=== PATIENT | male | born 1940 | race Caucasian/White ===

== ENCOUNTER → 2021-01-03 12:05 | Outpatient (BNVA) | payer OTHER, SELFPAY | PROVIDERS: PCP Nurse Practitioner Family; Visit Provider Nurse Practitioner | DX: M43.6 Torticollis (principal); M25.50 Pain in unspecified joint; R29.898 Other symptoms and signs involving the musculoskeletal system | CPT/HCPCS: 99204 ==

== ENCOUNTER → 2021-12-20 10:33 | Outpatient (BNVA) | payer OTHER, SELFPAY | PROVIDERS: PCP Family Medicine; Referring Provider Nurse Practitioner; Visit Provider Specialist | DX: G56.03 Carpal tunnel syndrome, bilateral upper limbs (principal); G56.23 Lesion of ulnar nerve, bilateral upper limbs | CPT/HCPCS: 95910; 95913 ==

== ENCOUNTER 2022-02-13 11:32 | Emergency (ER) | payer OTHER, SELFPAY ==
[2022-02-13 11:33] VITALS: BP 136/63; PULSE 80; RESP 17; TEMP 36.8; O2SAT 94; BMI 26.6
--- NOTE | 2022-02-13 11:45 | XR_ITS ---
WS: [id number] Exam: XR chest 1V portable [id number] Date/Time of Exam: 02/13/2022 11:45 AM Reason For Exam: chest pain No priors. The lungs are fully expanded and clear. Normal cardiomediastinal silhouette. Costophrenic angles are sharp. Bony structures are unremarkable. XR/XR chest 1V portable [id number] IMPRESSION: 1. No acute cardiopulmonary finding.
--- NOTE | 2022-02-13 11:46 | ECG_ITS ---
[facility] Test Date: 2022-02-13 Pat Name: Tyree Storm Department: Room: Gender: Male Retail Sales Associate: : 1940 Requested By: Lalito Flor Order Number: [id number] Soumya MD: Sherice March M.D. Measurements Intervals [place] Rate: 64 P: 59 NE: 140 QRS: 55 QRSD: 93 T: 49 QT: 409 QTc: 425 Interpretive Statements SINUS RHYTHM WITH SINUS ARRHYTHMIA NONSPECIFIC T-WAVE ABNORMALITY No previous ECG available for comparison Electronically Signed On 02-13-2022 22:53:58 CDT by Sherice March M.D. [id number] f
[2022-02-13 11:49] VITALS: BP 175/101; PULSE 67; O2SAT 96
[2022-02-13 12:00] LABS: Basophils # 0.1 10^3/uL (0.0-0.1); Basophils % 0.9 %; Eosinophils # 0.1 10^3/uL (0.0-0.8); Eosinophils % 1.8 %; Hematocrit 42.7 % (42.0-52.0); Hemoglobin 14.8 g/dL (11.7-16.6); Lymphocytes # 1.3 10^3/uL (0.8-4.8); Lymphocytes % 18.3 %; Mean Corpuscular HGB Conc 34.7 g/dL (30.0-36.0); Mean Corpuscular Hemoglobin 32.6 pg (28.0-34.0); Mean Corpuscular Volume 94.1 fl (80-94); Mean Platelet Volume 9.4 fL (7.4-10.4); Monocytes # 0.7 10^3/uL (0.2-0.9); Monocytes % 9.7 %; Neutrophils # 4.85 10^3/uL (1.8-7.7); Nucleated Red Blood Cells % 0 %; Platelet Count 220 10^3/cmm (130-400); Red Blood Count 4.54 10^6/uL (4.1-5.3); Red Cell Distribution Width 13.3 % (12.1-15.1)
--- NOTE | 2022-02-13 12:01 | ED_ITS ---
HPI - Chest Pain General: Chief Complaint: Chest Pain Stated Complaint: chest pain Time Seen by Provider: 02/13/22 11:49 Source: patient Mode of arrival: EMS History of Present Illness: 73-year-old male presents emergency room with complaints of elevated blood pressure and chest discomfort. Chest discomfort was a new complaint for him he was seen couple of days ago at [facility] and evaluated his work-up was evidently negative. He states within the last month he had a stress test that was also negative he did not require any further evaluation. He denied having any chest pain at this time when he first arrived his blood pressure Was stable. MD complaint: chest pain Onset (ago): minute(s) Timing of current episode: episodic Prior episodes: Yes Onset: during rest Pain location: substernal Pain radiation: none Severity: mild Quality: tightness, aching and heaviness Relieving factors: nothing Exacerbating factors: nothing Associated symptoms: Deny abdominal pain, diaphoresis, dyspnea, fever(s), leg edema, nausea, palpitations, sense of impending doom, syncope or vomiting Treatment prior to arrival: none Review of Systems Const: Denies: fever(s), chills, fatigue, malaise or diaphoresis ENMT: Denies: throat pain, ear or mastoid pain, nasal discharge or nasal congestion Card: Reports: chest pain; Denies: palpitations, irregular heart rhythm, edema or syncope Resp: Denies: dyspnea GI: Denies: abdominal pain, nausea or vomiting : Denies: flank pain, dysuria, urinary frequency or urinary urgency Skin/Breast: Denies: rash or pruritus [facility] ED PFSH: Medical History Arthralgia Torticollis Upper extremity weakness Social History Smoking and tobacco status: never smoked Alcohol intake: never History of recent travel: No Physical Exam Const: GENERAL APPEARANCE: cooperative and comfortable ORIENTATION/CONSCIOUSNESS: Yes awake, Yes oriented to person, Yes oriented to place and Yes oriented to time HENMT: COMMON NORMALS: normocephalic, atraumatic and hearing grossly normal bilaterally HEAD & SCALP: normocephalic and atraumatic Resp: COMMON NORMALS: normal respiratory effort, No retractions, No use of accessory muscles and clear to auscultation bilaterally AUSCULTATION: clear to auscultation bilaterally Cardio: COMMON NORMALS: regular rate, regular rhythm and No murmurs present (C ardio) RATE: regular rate RHYTHM: regular rhythm GI: COMMON NORMALS: Soft to palpation and No hepatosplenomegaly present AUSCULTATION: Yes normoactive bowel sounds PALPATION: Yes Soft to palpation, No Tenderness to palpation present (GI), No Guarding due to palpation present (GI) and Yes No hepatosplenomegaly present Extremity: COMMON NORMALS: normal to inspection, capillary refill normal, no clubbing, cyanosis or edema, no calf tenderness and no pedal edema Neuro: SENSORIUM/ORIENTATION: Yes oriented to person, Yes oriented to place and Yes oriented to time Skin: COMMON NORMALS: no rashes or lesions noted GENERAL SKIN EXAM: no rashes or lesions noted Course Vital Signs: Vital signs: Vital Signs Temperature 98.2 F 02/13/22 11:33 Pulse Rate 67 02/13/22 11:49 Respiratory Rate 17 02/13/22 11:33 Blood Pressure 152/73 02/13/22 14:10 Pulse Oximetry 96 02/13/22 11:49 Oxygen Delivery Me thod 02/13/22 11:33 Oxygen Flow Rate 2 02/13/22 11:33 MDM - Chest Pain Medical Decision Making Labs and imaging reviewed. EKG unremarkable. Discharge home with amlodipine for blood pressure recheck blood pressure with primary care within the week. Medical Records I reviewed the patient's medical records. Lab Data I reviewed the patient's lab results. : 02/13/22 11:52 02/13/22 11:52 Radiology Impressions Chest X-Ray 02/13/22 11:45 IMPRESSION: 1. No acute cardiopulmonary finding. Laboratory Results WBC 7.0 10^3/uL (4.0-10.0) 02/13/22 11:52 RBC 4.54 10^6/uL (4.1-5.3) 02/13/22 11:52 Hgb 14.8 g/dL (11.7-16.6) 02/13/22 11:52 Hct 42.7 % (42.0-52.0) 02/13/22 11:52 MCV 94.1 fl (80-94) H 02/13/22 11:52 MCH 32.6 pg (28.0-34.0) 02/13/22 11:52 MCHC 34.7 g/dL (30.0-36.0) 02/13/22 11:52 RDW 13.3 % (12.1-15.1) 02/13/22 11:52 Plt Count 220 10^3/cmm (130-400) 02/13/22 11:52 MPV 9.4 fL (7.4-10.4) 02/13/22 11:52 Neut % (Auto) 69.0 % 02/13/22 11:52 Lymph % (Auto) 18.3 % 02/13/22 11:52 Evans % (Auto) 9.7 % 02/13/22 11:52 Eos % (Auto) 1.8 % 02/13/22 11:52 Baso % (Auto) 0.9 % 02/13/22 11:52 Neut # (Auto) 4.85 10^3/uL (1.8-7.7) 02/13/22 11:52 Lymph # (Auto) 1.3 10^3/uL (0.8-4.8) 02/13/22 11:52 Evans # (Auto) 0.7 10^3/uL (0.2-0.9) 02/13/22 11:52 Eos # (Auto) 0.1 10^3/uL (0.0-0.8) 02/13/22 11:52 Baso # (Auto) 0.1 10^3/uL (0.0-0.1) 02/13/22 11:52 Nucleated RBC % (auto) 0 % 02/13/22 11:52 Nucleated RBCs # 0.0 /100WBC 02/13/22 11:52 Sodium 139 mmol/L (136-145) 02/13/22 11:52 Potassium 4.1 mmol/L (3.5-5.1) 02/13/22 11:52 Chloride 99 mmol/L (98-107) 02/13/22 11:52 Carbon Dioxide 30 mmol/L (22-29) H 02/13/22 11:52 Anion Gap 14.1 (5-19) 02/13/22 11:52 BUN 25 mg/dL (8-23) H 02/13/22 11:52 Creatinine 0.7 mg/dL (0.7-1.2) 02/13/22 11:52 GFR Calculation Not Reportable 02/13/22 11:52 Glucose 102 mg/dL (65-115) 02/13/22 11:52 Calculated Osmolality 293 mOsm/kg (285-295) 02/13/22 11:52 Calcium 9.2 mg/dL (8.5-10.5) 02/13/22 11:52 Total Bilirubin 0.6 mg/dL (0.15-1.2) 02/13/22 11:52 AST 23 U/L (0-40) 02/13/22 11:52 ALT 30 U/L (0-41) 02/13/22 11:52 Alkaline Phosphatase 106 U/L (40-130) 02/13/22 11:52 Troponin T Baseline 12 ng/L (0-15) 02/13/22 11:52 Troponin T 120 Minute 9.73 ng/L (0-15) 02/13/22 14:00 Delta Troponin T -2.27 ABS# (0-10) L 02/13/22 14:00 Total Protein 7.0 g/dL (6.6-8.7) 02/13/22 11:52 Albumin 4.2 g/dL (3.5-5.2) 02/13/22 11:52 Globulin 2.8 g/dL (1.3-4.6) 02/13/22 11:52 Discharge Plan Discharge Patient Disposition: Home Clinical Impression: HTN (hypertension) Condition: Stable Prescriptions: New amlodipine 5 mg tablet 5 mg PO DAILY Qty: 30 0RF No Action tizanidine 2 mg tablet 2 mg PO TID Qty: 90 2RF Discharge Orders: Discharge ED (Routine); Ordered 02/13/22 Ordered By: Lalito Guzmán Referrals: MARSHA WHEAT MD [Primary Care Provider] - Discharge Diet: Usual diet Discharge Activity: Increase activity as tolerated Patient Instructions: Opioid Safety, Pain Management Activity Restrictions/Additional Instructions: Up with your primary care doctor within the next week to recheck blood pressure. Coding Level of Care Code ED Distance Education Faculty Liaison for Chg Fwd Exam Detailed
[2022-02-13 12:24] LABS: Alanine Aminotransferase 30 U/L (0-41); Albumin Level 4.2 g/dL (3.5-5.2); Alkaline Phosphatase 106 U/L (40-130); Anion Gap 14.1 (5-19); Aspartate Amino Transferase 23 U/L (0-40); Blood Urea Nitrogen 25 mg/dL (8-23); Calcium 9.2 mg/dL (8.5-10.5); Carbon Dioxide 30 mmol/L (22-29); Chloride 99 mmol/L (98-107); Globulin 2.8 g/dL (1.3-4.6); Glucose 102 mg/dL (65-115); Osmolality Calculated 293 mOsm/kg (285-295); Potassium 4.1 mmol/L (3.5-5.1); Sodium 139 mmol/L (136-145); Total Bilirubin 0.6 mg/dL (0.15-1.2)
[2022-02-13 12:25] LABS: Troponin(5th) Baseline 12 ng/L (0-15)
[2022-02-13] MEDS: hyDRALAzine 20 mg/mL INJ 1 mL IVP (13:45)
[2022-02-13] MEDS: amlodipine 5 mg Tablet PO (13:45)
[2022-02-13 14:10] VITALS: BP 152/73
[2022-02-13 14:36] LABS: Troponin 5 2HR 9.73 ng/L (0-15)
[2022-02-13 15:08] LABS: Troponin 5 2HR Delta -2.27 ABS# (0-10)
== END 2022-02-13 14:10 | disposition home or self-care (01) ==
PROVIDERS: Emergency Provider Family Medicine; PCP Family Medicine
DX: I10 Essential (primary) hypertension (principal)
CPT/HCPCS: 36415; 71045; 80053; 84484; 85025; 93005; 96374; 99285; J0360

== ENCOUNTER → 2022-04-07 12:40 | Outpatient (BNVA) | payer OTHER, SELFPAY | PROVIDERS: PCP Family Medicine; Referring Provider Family Medicine; Visit Provider Nurse Practitioner | DX: M43.6 Torticollis (principal); R51.9 Headache, unspecified | CPT/HCPCS: G0463 ==

== ENCOUNTER → 2022-05-04 13:04 | Outpatient (BNVA) | payer OTHER, SELFPAY | PROVIDERS: PCP Family Medicine; Referring Provider Nurse Practitioner; Visit Provider Specialist | DX: G24.3 Spasmodic torticollis (principal); G56.03 Carpal tunnel syndrome, bilateral upper limbs; F40.231 Fear of injections and transfusions | CPT/HCPCS: 64616; J0585 ==

== ENCOUNTER → 2022-07-27 12:02 | Outpatient (BNVA) | payer OTHER, SELFPAY | PROVIDERS: PCP Family Medicine; Visit Provider Specialist | DX: G24.3 Spasmodic torticollis (principal); F40.231 Fear of injections and transfusions | CPT/HCPCS: 64616; J0585 ==

== ENCOUNTER → 2022-11-02 13:48 | Outpatient (BNVA) | payer OTHER, SELFPAY | PROVIDERS: PCP Family Medicine; Visit Provider Specialist | DX: G24.3 Spasmodic torticollis (principal); F40.231 Fear of injections and transfusions | CPT/HCPCS: 64616; 64642; J0585 ==

== ENCOUNTER → 2023-02-01 12:44 | Outpatient (BNVA) | payer OTHER, SELFPAY | PROVIDERS: PCP Family Medicine; Visit Provider Specialist | DX: G24.3 Spasmodic torticollis (principal) | CPT/HCPCS: 64616; J0585 ==

== ENCOUNTER → 2023-05-03 13:34 | Outpatient (BNVA) | payer OTHER, SELFPAY | PROVIDERS: PCP Family Medicine; Visit Provider Specialist | DX: G24.3 Spasmodic torticollis (principal) | CPT/HCPCS: 64616; 64642; J0585 ==

== ENCOUNTER → 2023-08-16 11:16 | Outpatient (BNVA) | payer OTHER, SELFPAY | PROVIDERS: PCP Internal Medicine; Visit Provider Specialist | DX: G24.3 Spasmodic torticollis (principal); F40.298 Other specified phobia | CPT/HCPCS: 64642; J0585 ==

== ENCOUNTER → 2023-11-15 10:40 | Outpatient (BNVA) | payer OTHER, SELFPAY | PROVIDERS: PCP Internal Medicine; Visit Provider Specialist | DX: G24.3 Spasmodic torticollis (principal); F40.298 Other specified phobia | CPT/HCPCS: 64616; J0585 ==

== ENCOUNTER → 2024-02-08 10:50 | Outpatient (BNVA) | payer OTHER, SELFPAY | PROVIDERS: PCP Internal Medicine; Visit Provider Specialist | DX: G24.3 Spasmodic torticollis (principal); F40.298 Other specified phobia | CPT/HCPCS: 64616; J0585 ==

== ENCOUNTER → 2024-05-09 10:45 | Outpatient (BNVA) | payer OTHER, SELFPAY | PROVIDERS: PCP Internal Medicine; Visit Provider Specialist | DX: G24.3 Spasmodic torticollis (principal) | CPT/HCPCS: 64616; J0585 ==

== ENCOUNTER → 2024-08-15 09:37 | Outpatient (BNVA) | payer OTHER, SELFPAY | PROVIDERS: PCP Internal Medicine; Visit Provider Specialist | DX: G24.3 Spasmodic torticollis (principal) | CPT/HCPCS: 64616; J0585; J9999 ==

== ENCOUNTER → 2024-11-13 13:02 | Outpatient (BNVA) | payer OTHER, SELFPAY | PROVIDERS: PCP Internal Medicine; Visit Provider Specialist | DX: G24.3 Spasmodic torticollis (principal) | CPT/HCPCS: 64616; J0585; J9999 ==

== ENCOUNTER → 2025-02-19 11:01 | Outpatient (BNVA) | payer OTHER, SELFPAY | PROVIDERS: PCP Internal Medicine; Visit Provider Specialist | DX: G24.3 Spasmodic torticollis (principal); F40.298 Other specified phobia | CPT/HCPCS: 64616; J0585; J9999 ==